=== PATIENT | female | born 1945 | race Caucasian/White ===

== ENCOUNTER 2017-02-06 14:04 | Emergency (ER) | payer OTHER ==
[2017-02-06 14:21] VITALS: BP 126/76; PULSE 88; RESP 16; TEMP 98.4; O2SAT 98
--- NOTE | 2017-02-06 14:43 | EDPHY ---
H & P Stated Complaint: fall yesterday, Dx with L humeral Fx at [facility] today - Personal History Current Tetanus/Diphtheria Vaccine: Unsure - Medical/Surgical History Hx Asthma: No Hx Chronic Respiratory Disease: No Hx Diabetes: No Hx Cardiac Disease: Yes Hx Renal Disease: No Hx Cirrhosis: No Hx Alcoholism: No Hx HIV/AIDS: No Hx Splenectomy or Spleen Trauma: No Other PMH: PMH: HTN. no PSH - Social History Smoking Status: Heavy smoker Time Seen by Provider: 02/06/17 14:29 HPI/ROS: Chief complaint: Left shoulder injury from fall History of present illness: This is a 71-year-old female who presents to the emergency department for evaluation of a left shoulder injury sustained when she fell. Patient tripped and fell yesterday landing onto the shoulder. She states there has only been minimal pain. In fact, she was able to go dancing after the injury last night. However pain persisted and she went to urgent care today. X-ray was taken which confirmed a fracture. Patient denies associated signs or symptoms including no open wounds, no abnormal coolness or paresthesias in the arm. No report of trauma to other parts of the body. (Daryn Mike) - Physical Exam Exam: General Appearance: Alert, nontoxic. Eyes: Pupils equal and round no injection. Respiratory: Chest is non tender, lungs are clear to auscultation. Cardiac: regular rate and rhythm Musculoskeletal: Neck is supple and non tender. The spine is nontender to palpation along its entire length. No crepitus, bony deformity or step-off. There is diffuse tenderness left shoulder and she does not want move it secondary to pain. The rest the left upper extremities unremarkable with no tenderness and good movement in the other joints. All other extremities have full range of motion and are non tender. Skin: No open wounds to the left upper extremity. (Daryn Mike) Constitutional: Initial Vital Signs Temperature (C) 36.9 C 02/06/17 14:19 Heart Rate 88 02/06/17 14:19 Respiratory Rate 16 02/06/17 14:19 Blood Pressure 126/76 H 02/06/17 14:19 O2 Sat (%) 98 02/06/17 14:19 O2 Delivery Mode Room Air Allergies/Adverse Reactions: No Known Allergies Allergy (Unverified 02/06/17 14:17) Home Medications: Medication Instructions Recorded Amlodipine Besylate 02/06/17 Aspirin 81mg (*) 02/06/17 CLONAZEPAM 02/06/17 Fish Oil 1000 mg (*) 02/06/17 Hydrocodone/APAP 5/325 [Milton 1 tab PO Q6H #10 tab 02/06/17 5/325 (*)] LANSOPRAZOLE 02/06/17 MAGNESIUM 02/06/17 Multivitamin 02/06/17 Medical Decision Making - Diagnostics Imaging: I viewed and interpreted images myself ED Course/Re-evaluation: Patient seen under the supervision of my secondary supervising physician Dr. Steven Vivas. Patient presents to the emergency department after being diagnosed with a left humeral neck fracture. Her arm is neurovascularly intact. By history and physical exam no evidence of trauma to other parts of the body. I have consulted with Orthopedics, Dr. Carrasco. He is comfortable with patient being left in sling and following up on an outpatient basis. Home care is discussed with the patient including pain management. Return precautions are given. Patient voiced understanding and agreement with plan. ( Daryn Mike) I did not see this patient while she was in the emergency department. However her care was discussed with the PA while the patient was in the department. I agree with treatment plan and management. IM the secondary supervising physician (Steven Vivas) Departure - Departure Disposition: Home, Routine, Self-Care Clinical Impression: Humeral head fracture Qualifiers: Encounter type: initial encounter Fracture type: closed Laterality: left Qualified Code(s): S42.292A - Other displaced fracture of upper end of left humerus, initial encounter for closed fracture Condition: Good Instructions: Hydrocodone/Acetaminophen (By mouth), Arm Fracture in Adults (ED) , How to Use a Sling (ED) Additional Instructions: Follow-up with an orthopedic doctor when you return home to Orthopedics In regards to pain control see the following: Use ibuprofen 400 mg 3 times a day for the next 2-3 days for pain In addition You have been prescribed [Milton] for pain. [Milton] contains Tylenol, do not take extra Tylenol/acetaminophen/Apap with it. It is sedating. If symptoms worsen or new symptoms develop return to the emergency room for recheck Referrals: CLAUDY THORNTON [Other] - As per Instructions Sunny Carrasco MD [Medical Doctor] - As per Instructions Stand Alone Forms: Airline Excuse Prescriptions: Hydrocodone/APAP 5/325 [Milton 5/325 (*)] 1 tab PO Q6H #10 tab
== END 2017-02-06 15:12 | disposition home or self-care (01) ==
DX: S42.292A Other displaced fracture of upper end of left humerus, initial encounter for closed fracture (principal); W01.0XXA Fall on same level from slipping, tripping and stumbling without subsequent striking against object, initial encounter; I10 Essential (primary) hypertension; Z79.82 Long term (current) use of aspirin; F17.200 Nicotine dependence, unspecified, uncomplicated
CPT/HCPCS: 73030-PO